=== PATIENT | female | born 1980 | race Caucasian/White ===

== ENCOUNTER 2017-06-07 13:34 | Observation (INO) | payer OTHER ==
[~2017-06-07 13:34] MED LIST: ISOVUE-370 76%-LOCM 1 ML ONE
[2017-06-07] MEDS ORDERED: Metoclopramide HCl 10 MG/2 ML VIAL ONE (14:08)
[2017-06-07 14:33] LABS: #Lymphocytes 0.5 thou/uL (1.20-3.40); #Monocytes 0.4 thou/uL (0.11-0.59); #Neutrophils 1.7 thou/uL (1.40-6.50); %Eosinophils 1.6 % (0.0-10.0); %Lymphocytes 18.6 % (21.0-51.0); %Monocytes 14.9 % (0.0-10.0); Hematocrit 35.5 % (36.0-47.0); Mean Platelet Volume 8.2 fL (7.4-10.4); Red Blood Cell (RBC) Count 3.92 mill/uL (4.20-5.40); White Blood Cell (WBC) Count 2.7 thou/uL (4.8-10.8)
[2017-06-07 14:54] LABS: ALT (SGPT) 7 U/L (8-55); AST (SGOT) 16 U/L (5-34); Alkaline Phosphatase 45 U/L (40-150); Anion Gap 9 mmol/L (10-20); BUN (Urea Nitrogen) 12 mg/dL (7.0-18.7); Bilirubin, Total 0.9 mg/dL (0.2-1.2); CK (CPK) 43 U/L (29-168); Calc. Creatinine Clearance 0 mL/min (70-130); Calcium 8.4 mg/dL (7.8-10.44); Carbon Dioxide 24 mmol/L (22-29); Chloride 110 mmol/L (98-107); Estimated GFR-MDRD Greater than 90; Globulin 3.5 g/dL (2.4-3.5); Lipase 14 U/L (8-78); Protein, Total 6.9 g/dL (6.0-8.3)
--- NOTE | 2017-06-07 17:47 | CT ---
CT ABDOMEN AND PELVIS WITH CONTRAST: 06/07/17 COMPARISON: None. HISTORY: HIV positive with abdominal pain, nausea and vomiting. TECHNIQUE: Multiple contiguous axial images were obtained in a CT of the abdomen and pelvis without contrast. C oronal reformats were performed. FINDINGS: The liver, gallbladder, kidneys, adrenal glands, spleen, and pancreas are unremarkable. No free air, free fluid, or stranding changes are seen in the abdomen or pelvis. The reproductive organs are unremarkable. The large and small bowel show no acute abnormality. No ab dominal or pelvic lymphadenopathy are seen. The osseous structures, visualized inferior thorax and abdominal wall soft tissues are unremarkable. IMPRESSION: No evidence of acute intra-abdominal/pelvic abnormality. POS: [facility]
[2017-06-07 18:01] LABS: Bilirubin Moderate (Negative); Blood, Urine Large (Negative); Glucose, Urine (Dipstick) Negative (Negative); Ketone, Urine 15 mg/dL (Negative); Nitrite Negative (Negative); Protein, Urine (Dipstick) 30 mg/dL (Neg-Trace)
[2017-06-07 18:07] LABS: Bacteria/HPF None Seen HPF (None Seen); Hyaline Casts/LPF 0-3 HYALINE CAST LPF (0-3 Hyaline); RBC/HPF 0-3 HPF (0-3); WBC/HPF 0-3 HPF (0-3)
[2017-06-07] MEDS ORDERED: Sodium Chloride 0.9% 1,000 ML IV SCH (22:26)
--- NOTE | 2017-06-07 23:21 | RAD ---
TWO VIEWS OF THE CHEST: 06/07/17 COMPARISON: 11/23/11, 06/06/17. HISTORY: Esophagitis. Abdominal pain. FINDINGS: Two views of the chest show normal sized cardiomediastinal silhouette. Linear opacities are seen in the left upper lobe which may represent scarring. No acute consolidation is seen. No pleural effusio n is present. IMPRESSION: Left upper lobe scarring. POS: [facility]
[2017-06-07 23:32] VITALS: BMI 16.9
[2017-06-08] MEDS ORDERED: Ondansetron HCl/PF 4 MG/2 ML Vial IVP PRN (00:01)
[2017-06-08] MEDS ORDERED: Acetaminophen 325 MG TAB PO PRN (00:01)
[2017-06-08] MEDS ORDERED: Sodium Chloride 0.45% 1,000 ML IV SCH (00:15)
[2017-06-08] MEDS ORDERED: Sodium Chloride 0.9% 1,000 ML IV SCH (00:15)
--- NOTE | 2017-06-08 05:38 | HP-2 ---
CODE STATUS: FULL. PRIMARY CARE PHYSICIAN: Nicanor Stuart MD ATTENDING: Asia Doss M.D. RESIDENT: Chris Potts MD HISTORIAN: The patient. SPECIALIST: Dr. Casper. CHIEF COMPLAINT: Vomiting. HISTORY OF PRESENT ILLNESS: Morena Harris is a 36-year-old female with past medical history of HIV who presents with a 1 month history of nausea and vomiting. On average, she has had 3 to 4 episodes of nausea and vomiting per day. The vomitus is nonbilious and nonbloody. Most of the time it occu rs after eating; however, it occurs occasionally, occurs on empty stomach in which case she just vom its acidic vomitus. She still has an appetite, but she feels like she has lost weight over the last month after she eats she feels like the food gets stuck in her chest and that causes her chest disc omfort until she vomits. This occurs with both solids and liquids intermittently. She was diagnose d with HIV in 2004, sees Dr. Casper and has been on Genvoya for the last 2 to 3 years. She has an ap pointment with him on Sunday. In the ER, she received IV Zofran 4 mg. PAST MEDICAL HISTORY: HIV. PAST SURGICAL HISTORY: and bilateral tubal ligation. ALLERGIES: No known drug allergies. MEDICATIONS: Genvoya [phone] mg p.o. daily. FAMILY HISTORY: Father had COPD. SOCIAL HISTORY: One-half to 1 pack per day smoker, although she has not smoked much in the last sun and minimal alcohol and no drug use. She has four children. REVIEW OF SYSTEMS: General: Positive for weight change. Denies fevers, chills, night sweats, and fatigue. Eyes: Denies vision changes or eye pain. ENT: Denies nasal congestion, rhinorrhea, sore throat. Respiratory: Denies cough, congestion, shortness of breath, exercise intolerance. Cardio vascular: Positive for chest pain/discomfort. Denies palpitations, edema, PND, orthopnea. Gastroi ntestinal: Positive for nausea, vomiting. Denies diarrhea, constipation, abdominal pain, GI bleedi ng. Genitourinary: Denies incontinence, dysuria, polyuria, and discharge. Skin: Denies rashes an d lesions. Musculoskeletal: Denies pain, tenderness, stiffness, swelling or arthritis. Neurologic : Denies weakness, numbness, syncope, seizures. Psychiatric: Denies anxiety and depression. PHYSICAL EXAMINATION: VITAL SIGNS: Blood pressure 124/74, pulse 75, respiratory rate 16, T-max 98.4, pulse ox 98% on room air. Current weight 47.6 kilograms. GENERAL: The patient is alert and oriented x4, in no acute distress, thin and appropriately interac tive. HEENT: Pupils equal, round, react to light and accommodation. Extraocular muscles intact. Conjunc tivae within normal limits. Tympanic membranes pearly gonzalez without bulging or erythema. Nasal muco sa and oropharynx within normal limits. No obvious lesions seen in the oropharynx. NECK: Supple, without lymphadenopathy or thyromegaly. CARDIOVASCULAR: Regular rate and rhythm. No murmurs or gallops. Pulses equal bilaterally. RESPIRATORY: Normal effort, no retractions. Lungs clear to auscultation bilaterally. SKIN: Warm and dry without cyanosis or lesions. ABDOMEN: Soft, nontender. Bowel sounds x4. No masses or distention. EXTREMITIES: No clubbing, cyanosis or edema. MUSCULOSKELETAL: Structure and tone within normal limit. Full range of motion. NEUROLOGIC: No deficits. Sensation within normal limits. PSYCHIATRIC: Appropriate. LABORATORY DATA: White blood cell count 2.7, hemoglobin 11.7, hematocrit 35.5, platelets 125. Sodi um 140, potassium 3.4, chloride 110, bicarbonate 24, BUN 12, creatinine 0.60, glucose 88, calcium 8. 4, total protein 6.9, albumin 3.4, total bilirubin 0.9, AST 16, ALT 7, alkaline phosphatase 45. Pre gnancy test was negative. CK 43, lipase 14. UA positive for large blood, 30 protein, 15 ketones, n egative otherwise. UA also had presence of squamous epithelium. IMAGING: CT of the abdomen, no evidence of acute intra-abdominal or pelvic abnormalities. ASSESSMENT AND PLAN: Morena Harris is a 36-year-old female with past medical history of HIV who pre sents with 1 month history of nausea and vomiting. 1. Esophagitis with history of HIV. There is concern for CMV, HSV or Love esophagitis. HIV fernanda ated and managed on an outpatient basis. Dr. aCsper has been consulted. Consult GI in the morning, p.r.n. Zofran for nausea, n.p.o. after midnight and a.m. CBC and BMP. Continue home HIV medications . IV fluids half normal saline at 90 mL an hour. 2. Human immunodeficiency virus. Continue home human immunodeficiency virus medications. White bl ood cell count is 2.7. 3. Nausea and vomiting. Continue p.r.n. IV Zofran. Continue to monitor vitals and then half violeta l saline at 90. 4. Code status: FULL. 5. Activity: Ad adan. 6. Diet: N.p.o. after midnight. DISPOSITION AND LENGTH OF HOSPITAL STAY: One day. Symptomatic medications will be provided. History and physical exam as well as management discussed with Dr. Asia Doss.
[2017-06-08 06:27] LABS: #Lymphocytes 0.5 thou/uL (1.20-3.40); #Monocytes 0.4 thou/uL (0.11-0.59); #Neutrophils 1.5 thou/uL (1.40-6.50); %Eosinophils 1.6 % (0.0-10.0); %Lymphocytes 20.8 % (21.0-51.0); %Monocytes 14.6 % (0.0-10.0); Mean Platelet Volume 8.2 fL (7.4-10.4); Red Blood Cell (RBC) Count 4.07 mill/uL (4.20-5.40); White Blood Cell (WBC) Count 2.4 thou/uL (4.8-10.8)
[2017-06-08 06:47] LABS: Anion Gap 11 mmol/L (10-20); BUN (Urea Nitrogen) 10 mg/dL (7.0-18.7); Calc. Creatinine Clearance 102 mL/min (70-130); Calcium 8.3 mg/dL (7.8-10.44); Carbon Dioxide 21 mmol/L (22-29); Chloride 110 mmol/L (98-107); Estimated GFR-MDRD Greater than 90
--- NOTE | 2017-06-08 08:31 | PDOC.FM ---
- Subjective Subjective: Pt reports feeling a little bit better after getting some zofran. Pt ate some pizza earlier in the night and did not report any episodes of vomiting over night. Still reports having the GERD like pain. Denies any chest pain and sob. Does report having diarrhea but it is due to drinking half a bottle of laxative earlier the other day due to constipation. Denies any other problems over night - Objective MAR Reviewed: Yes Vital Signs & Weight: Vital Signs (12 hours) Temp Pulse Resp BP Pulse Ox 06/08/17 07:15 98.3 F 76 16 108/67 98 06/08/17 04:00 98.6 F 63 18 121/70 98 06/08/17 01:26 97 06/08/17 00:45 98.3 F 81 18 109/65 97 06/07/17 23:36 98.2 F 75 18 06/07/17 23:31 98.2 F 75 18 123/60 97 Weight Weight 47.6 kg Result Diagrams: 06/08/17 06:01 06/08/17 06:01 Radiology Reviewed by me: Yes Radiology: CXR 06/07: TIM scarring CT Abdo/Pelvis 06/07: No evidence of acute intraabdominal/pelvic abnormalities. <Julius George - Last Filed: 06/08/17 08:29> - Objective Vital Signs & Weight: Vital Signs (12 hours) Temp Pulse Resp BP Pulse Ox 06/08/17 08:00 98.3 F 76 16 06/08/17 07:15 98.3 F 76 16 108/67 98 06/08/17 04:00 98.6 F 63 18 121/70 98 06/08/17 01:26 97 06/08/17 00:45 98.3 F 81 18 109/65 97 06/07/17 23:36 98.2 F 75 18 06/07/17 23:31 98.2 F 75 18 123/60 97 Weight Weight 47.6 kg Result Diagrams: 06/08/17 06:01 06/08/17 06:01 <Blas Luke - Last Filed: 06/08/17 10:27> Phys Exam - Physical Examination HEENT: PERRLA, moist MMs, oral pharynx no lesions Neck: no nodes, no JVD, supple, full ROM Respiratory: no wheezing, no rales, no rhonchi, clear to auscultation bilateral Cardiovascular: no significant murmur, no rub Gastrointestinal: soft, non-tender, no distention, positive bowel sounds Musculoskeletal: no edema, pulses present Neurological: non-focal, normal sensation Psychiatric: normal affect, A&O x 3 Skin: no rash <Julius George - Last Filed: 06/08/17 08:29> Dx/Plan (1) HIV (human immunodeficiency virus infection) Status: Acute (2) Esophagitis Code(s): K20.9 - ESOPHAGITIS, UNSPECIFIED Status: Acute (3) Abdominal pain with vomiting Code(s): R10.9 - UNSPECIFIED ABDOMINAL PAIN; R11.10 - VOMITING, UNSPECIFIED Status: Acute - Plan Plan: Esophagitis w/ hx of HIV -Concern for CMV, HSV or Love -GI-Dr. Batista consulted. will await recommendations -NPO -PRN zofran HIV -ID-Dr. Casper consulted. appreciate recs -continue home medication, Genvoya -WBC 2.7-->2.4. CD4 count reported low from outside check. Vomitting -K low, will replace IVPB due to being NPO. -1/2 normal saline @ 90 mls/hr. <Julius George - Last Filed: 06/08/17 08:29> Attending Addendum - Attending Addendum I personally evaluated the patient and discussed the management with Dr. George. I agree with the History, Examination, Assessment and Plan documented above with any addition or exceptions noted below. Awaiting EGD and Dr. Casper recommendations. Patient open to counselling outpatient with Dr. Baird. We will refer her outpatient to psychology. <Blas Luke - Last Filed: 06/08/17 10:27>
[2017-06-08] MEDS ORDERED: Potassium Chloride 20 MEQ/100 ML PREMIX BAG IVPB SCH (08:45)
[2017-06-08] MEDS ORDERED: Famotidine 20 MG TAB PO SCH (09:00)
[2017-06-08] MEDS ORDERED: [UNRECOGNIZED DRUG - OTHER] PO SCH (09:00)
[2017-06-08 09:58] LABS: Amphetamine Not Detected (NotDetected); Methadone Not Detected (NotDetected); Methamphetamine Not Detected (NotDetected)
--- NOTE | 2017-06-08 15:25 | CON ---
DATE OF CONSULTATION: 06/08/2017 HISTORY OF PRESENT ILLNESS: A 36-year-old with longstanding seropositive HIV status and progressive immunosuppression associated with various difficulties in the actual intake of antiretroviral medic imer. Last time I saw her in the office is about a year ago and at that time, patient had been belén ng in [place] then moved back to a small town in [place] with her . Her viral load then wa s 55,000 and CD4 of 50, I switch her to Genvoya, Bactrim, azithromycin, Diflucan and she did not gonzalo w up for revisit reportedly because of transportation issues. She had a May lab appointment, which she kept and this time the CD4 cell count has gone further down to 36 and viral load was highe r to at 213,000. Patient reportedly developed odynophagia and dysphagia for the past month prior to admission and that was making her even harder her adherence to the medication. Eventually, she gonzalo wed up in the emergency room, I was released a few days ago and yesterday the ER PA contacted me and I directed him to go ahead and admit her. She is currently having difficulty in swallowing, no hea daches, no visual symptoms. She has lost quite a bit of weight, some cough. No dyspnea. No abdomi nal pain or diarrhea. No genitourinary symptoms. No joint symptoms. No neurological symptoms. PAST MEDICAL HISTORY: Includes HIV seropositive status, prurigo nodularis, wasting syndrome and she has had difficulty with adherence to her antiretroviral therapy for various reasons and has a histo ry of drug use in the past, but apparently she is on in remission from that. PAST SURGICAL HISTORY: , tubal ligation. ALLERGIES: None. MEDICATIONS: Supposed to be on Genvoya, which she was trying to take. FAMILY HISTORY: COPD. SOCIAL HISTORY: Current smoker. PHYSICAL EXAMINATION: VITAL SIGNS: T-max 98.6, blood pressure 118/74, pulse 68, respirations 16, O2 sat 97%. GENERAL: Appears in some distress, she is oriented, pleasant. No skin lesions, peripheral IV acces s. No Gross catheter. No lymphadenopathy. HEENT: Ocular movements are conjugate. Sclerae white. Oral cavity with no evidence of thrush. Nu merous teeth in place with some periodontitis and gum disease. NECK: Supple, no jugular vein distention, or carotid bruits, no thyromegaly. LUNGS: With symmetric clear breath sounds. HEART: S1, S2, regular rate. No S3 or S4. ABDOMEN: Soft, not distended or tender. No ascites. No bladder distention. Scaphoid abdomen. EXTREMITIES: No joint inflammatory activity. Moves all extremities equally. LABORATORY AND X-RAY FINDINGS: White cell count 2.7, hemoglobin 11, MCV 90, platelets 125,000, 64% neutrophils. Sodium 139, creatinine 0.57, chloride 110, AST 16. Urinalysis with negative wbc, prot ein 30. Toxicology with cannabinoids, otherwise negative. Reports included abdomen and pelvis CT, which is essentially normal. She also had a chest x-ray, which showed left upper lobe scarring. ASSESSMENT: 1. Longstanding human immunodeficiency virus infection with poor adherence to antiretroviral therap y and progressive immunosuppression. 2. Likely esophagitis, either secondary to herpes simplex, CMV or idiopathic causes or Love. DISCUSSION: Patient will need an EGD to identify the etiology and then off her specific treatment. Meantime, continue Diflucan IV and antacids and submit cryptococcus antigen, CMV, DNA, PCR, and AFB cultures in blood, Bactrim prophylaxis for PCP by suspension of Kaletra and Epivir and etravirine f or now. In the outpatient setting, once the swallowing problem is resolved then we will consider tr ansition to a regimen with Triumeq, which will allow fragmentation of the tablet to facilitate swall owing.
[2017-06-08 16:09] VITALS: BP 100/76; TEMP 97.8
[2017-06-08] MEDS ORDERED: DEXTROSE 5% IVPB SCH ×2 (21:00)
[2017-06-08] MEDS ORDERED: TRIMETHOPRIM IVPB SCH ×2 (21:00)
[2017-06-08] MEDS ORDERED: SULFAMETHOXAZOLE IVPB SCH ×2 (21:00)
[2017-06-08] MEDS ORDERED: WATER IVPB SCH ×2 (21:00)
[2017-06-08] MEDS ORDERED: Lopinavir/Ritonavir 80 MG/20 MG per ML Oral Solution PO SCH (21:00)
[2017-06-09] MEDS ORDERED: Fluconazole In NaCl,Iso-Osm 200 MG in Premix Bag 1 BAG IVPB SCH ×2 (09:00)
--- NOTE | 2017-06-10 16:38 | DIS-2 ---
DATE OF ADMISSION: 06/07/2017 DATE OF DISCHARGE: 06/08/2017 Patient left AMA. ADMITTING ATTENDING: Dr. Asia Doss. DISCHARGE ATTENDING: Dr. Blas Luke. RESIDENT: Julius George M.D., PGY1 CONSULTATIONS: ID, Dr. Dario Casper; and GI, Dr. Rui Batista. It was noted that patient did not stay around as she left AMA before Dr. Rui Batista was able to a ssess her. DIAGNOSES: 1. Human immunodeficiency virus. 2. Esophagitis. 3. Abdominal pain with vomiting. 4. Anxiety. 5. History of bipolar disease which she was not be treated for. PROCEDURE: The patient was supposed to have EGD, but did not stay around for EGD. DISCHARGE MEDICATIONS: 1. Tylenol. 2. Etravirine 200 mg p.o. b.i.d. 3. Famotidine 20 mg p.o. b.i.d. 4. Fluconazole 200 mg IV. 5. Lopinavir/ritonavir 400 mg p.o. b.i.d. 6. Potassium 20 mEq. 7. Bactrim 190 mg IV. I am not sure if patient stuck around to receive these medications. DISCONTINUED MEDICATIONS: Genvoya. HISTORY OF PRESENT ILLNESS AND BRIEF HOSPITAL COURSE: Ms. Morena Harris is a 36-year-old female wit h past medical of HIV, who presented with 1-month history of nausea and vomiting. On average, she h as 3-4 episodes of nausea and vomiting per day, states she has a pain in her abdomen, reports it is GERD, usually occurs after eating, reported as food feels like was stuck. Diagnosed with HIV in [address] Casper and has been on Genvoya for the last 2-3 years. It is noted that she has not b een in the past, has not been very compliant with medication, and per history, it sounded like her l ast CD4 count checked might have been 34. At this time, there was concern for esophagitis with HIV- type picture with possible Love, CMV, possible PCP. At this time, we consulted Dr. Casper and smooth jimenez to consult GI. She had a CT abdomen and pelvis done, which showed no evidence of acute intra-a bdominal or pelvic abnormality. She also got a chest x-ray, which showed left upper lobe scarring. During this stay, she was kept n.p.o., as she was awaiting consult by Dr. Rui Batista, GI, for EG D. She was seen by Dr. Casper and some of her medications were switched. She was to be switched to fluconazole and then given Bactrim p.r.n. It was noted that the patient continued to get agitated. She is NPO and had not seen a GI doctor. She was getting frustrated. She did not like what Dr. Deshpande told her. She has had frustrations with Dr. Casper in the past. At this time, I went up and michelle ked to her and told her that she could sip on some water and keep her mouth moist with some breath p ads. Then overnight, she was seen by Dr. Potts, who said the patient got even more frustrated. Dr. Batista had not seen her yet. Dr. Potts put her on clear liquids until Dr. Batista would be able to se e her. At this time, the patient left AMA, stormed off, said she was going to [facility], was tired of this waiting around, did not care to wait around any longer and left AMA. DISPOSITION: The patient is guarded, because the patient left AMA. Did not choose to continue care with us at this time. DISCHARGE INSTRUCTIONS: 1. Location: Unknown as she left AMA. 2. Activity: As tolerated. She was able to walk out AMA on her own. 3. Diet: This will be whatever she chooses, as she did not get assessed by GI. 4. Followup: No followup as she left AMA.
== END 2017-06-08 19:00 | disposition left against medical advice (07) ==
LOC: ERS 13:34 → T4-A 22:15 → INTOOBSV 22:15
PROVIDERS: ADMIT Family Medicine; ATTEND Family Medicine
DX: B20 Human immunodeficiency virus [HIV] disease (principal); K20.9 Esophagitis, unspecified; R10.9 Unspecified abdominal pain; F41.9 Anxiety disorder, unspecified; F31.9 Bipolar disorder, unspecified; R11.2 Nausea with vomiting, unspecified; R64 Cachexia; J98.4 Other disorders of lung; F17.210 Nicotine dependence, cigarettes, uncomplicated; Z68.1 Body mass index [BMI] 19.9 or less, adult; Z53.21 Procedure and treatment not carried out due to patient leaving prior to being seen by health care provider; Z91.14 Patient's other noncompliance with medication regimen; Z79.899 Other long term (current) drug therapy; Z98.51 Tubal ligation status; Z98.890 Other specified postprocedural states; Z83.6 Family history of other diseases of the respiratory system
CPT/HCPCS: 36415; 71020; 74177; 80048; 80053; 80306; 81003; 81015; 81025; 82550; 83690; 84703; 85025; 87497; 87899; 96361; 96374; A4216; C9399; G0378; J2765; J3480; J3490; J7050; J7070

== ENCOUNTER 2018-01-25 14:31 | Outpatient (CLI) | payer OTHER | END 2018-01-25 14:32 | disposition home or self-care (01) | LOC: BICULT 14:31 | PROVIDERS: ATTEND Family Medicine | DX: N93.9 Abnormal uterine and vaginal bleeding, unspecified (principal); R93.8 Abnormal findings on diagnostic imaging of other specified body structures | CPT/HCPCS: 76856 ==

== ENCOUNTER 2018-02-21 11:19 | Emergency (ER) | payer MEDICAID, OTHER ==
--- NOTE | 2018-02-21 12:28 | RAD ---
CHEST 1 VIEW: HISTORY: Chest and abdominal pain. COMPARISON: Chest radiograph 06/07/17. FINDINGS: There is callus formation of the left posterior rib fracture. There is scarring in the left lung ape x extending to the pleura. This appears to be similar to the comparison examination. Also, some per ipheral right upper lobe peripheral scarring. Mild lung hyperinflation. IMPRESSION: Bilateral upper lobe scarring for the sequelae of prior atypical infectious process. POS: [facility]
[2018-02-21 12:29] LABS: Hemoglobin 10.9 g/dL (12.0-16.0); Mean Corpuscular HGB CONC 33.9 g/dL (32.0-36.0); Mean Corpuscular Hemoglobin 29.7 pg (27.0-31.0); Mean Corpuscular Volume 87.6 fl (81.0-99.0); Mean Platelet Volume 8.5 fL (7.4-10.4); Platelet Count 166 thou/uL (130-400); RBC Distribution Width 11.5 % (11.5-14.5); Red Blood Cell (RBC) Count 3.68 mill/uL (4.20-5.40); White Blood Cell (WBC) Count 5.1 thou/uL (4.8-10.8)
[2018-02-21 12:37] LABS: BHCG - Serum Negative (NEGATIVE); Pregs Control Background? CLEAR/WHITE (CLR/WHITE); Pregs Control Bar Appear? YES (CONTROL BAR)
[2018-02-21] MEDS ORDERED: Mag-Al 1200 mg/1200 mg/30 ML UDCUP ONE (12:38)
[2018-02-21] MEDS ORDERED: Lidocaine Viscous Sol 2% 15 ml UD Cup ONE (12:38)
[2018-02-21] MEDS ORDERED: Famotidine 20 MG TAB ONE (12:38)
[2018-02-21 12:46] LABS: ALT (SGPT) 8 U/L (8-55); AST (SGOT) 14 U/L (5-34); Albumin 3.5 g/dL (3.5-5.0); Alkaline Phosphatase 49 U/L (40-150); Anion Gap 11 mmol/L (10-20); BUN (Urea Nitrogen) 10 mg/dL (7.0-18.7); Bilirubin, Total 1.1 mg/dL (0.2-1.2); Calc. Creatinine Clearance 0 mL/min (70-130); Calcium 8.6 mg/dL (7.8-10.44); Carbon Dioxide 25 mmol/L (22-29); Chloride 106 mmol/L (98-107); Estimated GFR-MDRD Greater than 90; Globulin 4.2 g/dL (2.4-3.5); Glucose 84 mg/dL (70-105); Lipase 29 U/L (8-78); Potassium 3.1 mmol/L (3.5-5.1); Protein, Total 7.7 g/dL (6.0-8.3); Sodium 139 mmol/L (136-145)
[2018-02-21 12:48] LABS: CKMB 0.7 ng/mL (0-6.6); Troponin I Less than 0.010 ng/mL (< 0.028)
[2018-02-21 13:06] LABS: Lymphocytes 4 % (21-51); MDiff Complete? YES; Monocytes 10 % (0-10); Neutrophil 84 % (42-75); PLT Morphology Comment Appears Adequate; Polychromasia SLIGHT = 2-3 cells (100X) (0-2/hpf); Reactive Lymphocytes 2 % (0-10)
[2018-02-21] MEDS ORDERED: Potassium Chloride 20 MEQ TAB ONE (14:15)
== END 2018-02-21 16:34 | disposition home or self-care (01) ==
LOC: ERS 11:19
DX: K29.70 Gastritis, unspecified, without bleeding (principal); Z71.6 Tobacco abuse counseling; B20 Human immunodeficiency virus [HIV] disease; F41.9 Anxiety disorder, unspecified; F31.9 Bipolar disorder, unspecified; F17.210 Nicotine dependence, cigarettes, uncomplicated; Z79.899 Other long term (current) drug therapy
CPT/HCPCS: 36415; 71045; 80053; 82553; 83690; 84484; 84703; 85025; 93005; 96360; 99406

== ENCOUNTER 2018-03-13 08:12 | Day surgery (SDC) | payer OTHER ==
[2018-03-13] MEDS ORDERED: Lidocaine 1% PF 5 ML VIAL ONE (13:51)
[2018-03-13] MEDS ORDERED: PROPOFOL 200 MG/20 ML VIAL ONE (13:51)
--- NOTE | 2018-03-13 21:21 | OP ---
PREOPERATIVE DIAGNOSIS: Dysphagia. PROCEDURE: After informed consent was obtained, the patient was placed in the left lateral decubitus position. Anesthesia was administered per the Anesthesia Department. Forward-viewing endoscope was inserted in esophagus under direct visualization with ease and past the the second portion of the du odenum with ease. Second portion of the duodenum was normal. The duodenal bulb was normal. The pyl orus, antrum, body, fundus, and cardia were normal. The esophagus displayed circumferential and ramin re candidiasis. There were some areas of scattered nodularity and erosion and these areas were biops ied. ASSESSMENT: 1. Severe Love esophagitis with some scattered areas of nodularity and erosion - status post biop sy. 2. Otherwise normal esophagogastroduodenoscopy. RECOMMENDATIONS: Begin fluconazole 400 mg daily for 21 days.
== END 2018-03-13 17:30 | disposition home or self-care (01) ==
LOC: SDC 08:12
PROVIDERS: ATTEND Internal Medicine Gastroenterology
PROC: 0DB58ZX Excision of Esophagus, Via Natural or Artificial Opening Endoscopic, Diagnostic (ICD-10-PCS; principal; 2018-03-13)
DX: B37.81 Candidal esophagitis (principal); Z79.899 Other long term (current) drug therapy
CPT/HCPCS: 88305; 88312; 88313; J2001; J2704

== ENCOUNTER 2018-08-13 12:28 | Emergency (ER) | payer OTHER ==
[2018-08-13] MEDS ORDERED: Metoclopramide HCl 10 MG/2 ML VIAL ONE (13:18)
[2018-08-13 13:23] LABS: #Lymphocytes 0.3 thou/uL (1.20-3.40); #Monocytes 0.4 thou/uL (0.11-0.59); #Neutrophils 2.8 thou/uL (1.40-6.50); %Eosinophils 0.4 % (0.0-10.0); %Lymphocytes 8.3 % (21.0-51.0); %Monocytes 10.7 % (0.0-10.0); %Neutrophils 80.6 % (42.0-75.0); Hemoglobin 12.8 g/dL (12.0-16.0); Mean Corpuscular HGB CONC 34.1 g/dL (32.0-36.0); Mean Corpuscular Hemoglobin 30.4 pg (27.0-31.0); Mean Corpuscular Volume 89.2 fL (78.0-98.0); Platelet Count 129 thou/uL (130-400); RBC Distribution Width 12.4 % (11.5-14.5); Red Blood Cell (RBC) Count 4.21 mill/uL (4.20-5.40); White Blood Cell (WBC) Count 3.4 thou/uL (4.8-10.8)
[2018-08-13 13:33] LABS: Acetaminophen Less than 6.0 mcg/mL (10.0-30.0); Alcohol Less than 10 mg/dL (Less than 10); Salicylate Less than 8.0 mg/dL (15.0-30.0)
[2018-08-13 13:33] LABS: ALT (SGPT) 33 U/L (8-55); AST (SGOT) 34 U/L (5-34); Albumin 3.7 g/dL (3.5-5.0); Alkaline Phosphatase 54 U/L (40-150); Anion Gap 11 mmol/L (10-20); BUN (Urea Nitrogen) 8 mg/dL (7.0-18.7); Bilirubin, Total 1.1 mg/dL (0.2-1.2); Calc. Creatinine Clearance 0 mL/min (70-130); Calcium 9.1 mg/dL (7.8-10.44); Carbon Dioxide 24 mmol/L (22-29); Chloride 105 mmol/L (98-107); Estimated GFR-MDRD 90; Glucose 94 mg/dL (70-105); Potassium 3.4 mmol/L (3.5-5.1); Protein, Total 7.7 g/dL (6.0-8.3); Sodium 137 mmol/L (136-145)
--- NOTE | 2018-08-13 13:43 | RAD ---
CHEST ONE VIEW: Comparison: 02-21-18 History: Cough. FINDINGS: Normal cardiac silhouette. The pulmonary vessels and hilum are normal. Costophrenic angles are clear. Hyperinflation, without consolidation or mass. No pneumothorax or acute osseous abnormalities. Old p osterior left sixth rib fracture is noted. IMPRESSION: No acute cardiopulmonary process. POS: [facility]
[2018-08-13 13:47] LABS: Bilirubin Small (Negative); Blood, Urine Negative (Negative); Clarity CLEAR (Clear); Glucose, Urine (Dipstick) Negative (Negative); Leukocyte Negative (Negative); Nitrite Positive (Negative); Protein, Urine (Dipstick) 30 mg/dL (Neg-Trace); Specific Gravity, Urine 1.019 (1.002-1.036); pH, Urine 6.5 (5.0-9.0)
[2018-08-13 13:48] LABS: Pregnancy Test - Urine (BHCG) Negative (Negative); Pregu Control Background? CLEAR/WHITE (CLR/WHITE); Pregu Control Bar Appear? YES (CONTROL BAR); Specific Gravity 1.019 (1.002-1.036)
[2018-08-13 13:49] LABS: Bacteria/HPF Rare-Few HPF (None Seen); Pathc Cast-AUWi Flag 1.16 (0-2.49); RBC/HPF None Seen HPF (0-3); Squamous Epithelial 0-3 HPF (0-3); WBC/HPF 21-50 HPF (0-3); Yeast-AUWi Flag 22.6 (0-25.0)
[2018-08-13 13:51] LABS: Hyaline Casts/LPF 0-3 HYALINE CAST LPF (0-3 Hyaline)
[2018-08-13 14:01] LABS: Amphetamine Not Detected (NotDetected); Barbiturates Screen Not Detected (NotDetected); Benzodiazepine Screen Not Detected (NotDetected); Cocaine Metabolite Screen Not Detected (NotDetected); Medtox Control Line Valid? VALID (VALID); Medtox Reader # READER 1; Methadone Not Detected (NotDetected); Methamphetamine Not Detected (NotDetected); Opiate Screen Not Detected (NotDetected); Oxycodone Screen Not Detected (NotDetected); Phencyclidine (PCP) Not Detected (NotDetected); THC/Cannabinoid Screen Detected (NotDetected); Tricyclic Screen Not Detected (NotDetected)
--- NOTE | 2018-08-13 14:53 | CT ---
CT BRAIN: Date: 08-13-18 Provided Clinical History: Multiple recent falls with loss of consciousness. FINDINGS: No comparison. The ventricular system appears normal in size and morphology. There is no evidence for intracranial h emorrhage or mass effect. The extracranial soft tissues and osseous structures demonstrate an unremarkable CT appearance. IMPRESSION: No evidence for intracranial hemorrhage or mass effect. POS: [facility]
--- NOTE | 2018-08-13 14:59 | CT ---
CT OF THE CERVICAL SPINE DATE: 08-13-18 Provided Clinical History: Multiple recent falls with loss of consciousness. FINDINGS: There is no evidence for fracture or traumatic subluxation. There is no prevertebral soft tissue swel ling evident. There is an age indeterminate central disc herniation at C4-5 with potential for efface ment of the ventral aspect of the spinal cord. There is a cystic mass involving the left thyroid lobe measuring at least 2.8 cm. Paraseptal emphysematous changes are seen at the left lung apex as well a s biapical pleural parenchymal scarring. IMPRESSION: 1. No evidence for fracture or traumatic subluxation. 2. Central disc herniation at C4-5. The chronicity of this process is uncertain. 3. At least 2.8 cm cystic mass involving the left thyroid lobe for which nonemergent follow up ultras ound is recommended. POS: [facility]
[2018-08-13] MEDS ORDERED: cefTRIAXone\\ROCEPHIN 2 GM VIAL ONE (15:29)
[2018-08-13] MEDS ORDERED: Sodium Chloride 0.9% 100 ML ONE (15:29)
--- NOTE | 2018-08-17 17:52 | EKG ---
Test Reason : Blood Pressure : / mmHG Vent. Rate : 094 BPM Atrial Rate : 094 BPM P-R Int : 170 ms QRS Dur : 094 ms QT Int : 384 ms P-R-T Axes : 068 098 025 degrees QTc Int : 480 ms Normal sinus rhythm Rightward axis Abnormal ECG Confirmed by SHERRI QUINONES ([id number]), manuscript editor JACKIE GAMEZ ([id number]) on 08/17/2018 5:52:15 PM Referred By: do quinones Confirmed By:SHERRI QUINONES
== END 2018-08-13 16:01 | disposition home or self-care (01) ==
LOC: ERS 12:28
DX: N39.0 Urinary tract infection, site not specified (principal); F31.9 Bipolar disorder, unspecified; B20 Human immunodeficiency virus [HIV] disease; F17.210 Nicotine dependence, cigarettes, uncomplicated; Z79.899 Other long term (current) drug therapy; Z71.6 Tobacco abuse counseling
CPT/HCPCS: 36415; 51701; 70450; 71045; 72125; 80053; 80306; 80307; 81003; 81015; 81025; 85025; 93005; 96365; 96367; 99406; A4353; J0696; J2765; J7050

== ENCOUNTER 2018-11-11 15:01 | Emergency (ER) | payer OTHER ==
--- NOTE | 2018-11-11 17:06 | RAD ---
CHEST 2 VIEWS: INDICATION: Chronic acid reflux. COMPARISON: Prior exam dated 08/13/2018 and 06/07/2017. FINDINGS: There is stable scarring within the left upper lobe. There is pleural parenchymal scarring involving both lung apices. Heart size is normal. No consolidation, pleural effusion, or pneumothorax is sandra dent. IMPRESSION: No acute cardiopulmonary abnormality. Stable chronic lung changes. POS: [facility]
[2018-11-11 17:07] LABS: #Lymphocytes 0.5 thou/uL (1.20-3.40); #Monocytes 0.4 thou/uL (0.11-0.59); #Neutrophils 2.4 thou/uL (1.40-6.50); %Basophils 0.1 % (0.0-1.0); %Eosinophils 1.2 % (0.0-10.0); %Lymphocytes 15.6 % (21.0-51.0); %Monocytes 11.6 % (0.0-10.0); %Neutrophils 71.5 % (42.0-75.0); Hemoglobin 14.3 g/dL (12.0-16.0); Mean Corpuscular HGB CONC 33.4 g/dL (32.0-36.0); Mean Corpuscular Hemoglobin 30.9 pg (27.0-31.0); Mean Corpuscular Volume 92.5 fL (78.0-98.0); Mean Platelet Volume 8.4 fL (7.4-10.4); Platelet Count 159 thou/uL (130-400); RBC Distribution Width 11.5 % (11.5-14.5); Red Blood Cell (RBC) Count 4.63 mill/uL (4.20-5.40); White Blood Cell (WBC) Count 3.3 thou/uL (4.8-10.8)
[2018-11-11 17:29] LABS: ALT (SGPT) 19 U/L (8-55); AST (SGOT) 27 U/L (5-34); Alkaline Phosphatase 75 U/L (40-150); Anion Gap 11 mmol/L (10-20); BUN (Urea Nitrogen) 10 mg/dL (7.0-18.7); Bilirubin, Total 0.5 mg/dL (0.2-1.2); Calc. Creatinine Clearance 0 mL/min (70-130); Carbon Dioxide 26 mmol/L (22-29); Chloride 105 mmol/L (98-107); Estimated GFR-MDRD Greater than 90; Globulin 4.4 g/dL (2.4-3.5); Glucose 99 mg/dL (70-105); Lipase 47 U/L (8-78); Potassium 3.7 mmol/L (3.5-5.1); Protein, Total 8.4 g/dL (6.0-8.3); Sodium 138 mmol/L (136-145)
[2018-11-11] MEDS ORDERED: HYDROcodone/Acetaminophen 10/325 mg Tablet ONE (17:50)
[2018-11-11] MEDS ORDERED: Lidocaine Viscous Sol 2% 15 ml UD Cup ONE (17:51)
[2018-11-11] MEDS ORDERED: Mag-Al 1200 mg/1200 mg/30 ML UDCUP ONE (17:51)
== END 2018-11-11 18:01 | disposition home or self-care (01) ==
LOC: ERS 15:01
DX: K21.0 Gastro-esophageal reflux disease with esophagitis (principal); B37.81 Candidal esophagitis; B20 Human immunodeficiency virus [HIV] disease; F31.9 Bipolar disorder, unspecified; F17.210 Nicotine dependence, cigarettes, uncomplicated; Z79.899 Other long term (current) drug therapy
CPT/HCPCS: 36415; 71046; 80053; 83690; 84484; 85025; 87338; 93005

== ENCOUNTER 2019-02-09 23:17 | Emergency (ER) | payer OTHER ==
[2019-02-10 00:06] LABS: Acetaminophen Less than 6.0 mcg/mL (10.0-30.0); Alcohol Less than 10 mg/dL (Less than 10); CK (CPK) 70 U/L (29-168); Salicylate Less than 8.0 mg/dL (15.0-30.0)
[2019-02-10 00:11] LABS: ALT (SGPT) 20 U/L (8-55); AST (SGOT) 23 U/L (5-34); Albumin 3.5 g/dL (3.5-5.0); Alkaline Phosphatase 58 U/L (40-150); Anion Gap 11 mmol/L (10-20); BUN (Urea Nitrogen) 19 mg/dL (7.0-18.7); Bilirubin, Total 0.4 mg/dL (0.2-1.2); Calc. Creatinine Clearance 0 mL/min (70-130); Calcium 8.9 mg/dL (7.8-10.44); Carbon Dioxide 26 mmol/L (22-29); Chloride 107 mmol/L (98-107); Estimated GFR-MDRD 82; Globulin 3.4 g/dL (2.4-3.5); Glucose 79 mg/dL (70-105); Potassium 3.8 mmol/L (3.5-5.1); Protein, Total 6.9 g/dL (6.0-8.3); Sodium 140 mmol/L (136-145)
[2019-02-10 00:13] LABS: Band 8 % (5-11); Hemoglobin 10.2 g/dL (12.0-16.0); Lymphocytes 13 % (21-51); MDiff Complete? YES; Mean Corpuscular HGB CONC 32.8 g/dL (32.0-36.0); Mean Corpuscular Hemoglobin 29.7 pg (27.0-31.0); Mean Corpuscular Volume 90.5 fL (78.0-98.0); Mean Platelet Volume 8.4 fL (7.4-10.4); Monocytes 6 % (0-10); Myelocyte 1 % (0-0); Neutrophil 72 % (42-75); Platelet Count 171 thou/uL (130-400); RBC Distribution Width 13.7 % (11.5-14.5); Red Blood Cell (RBC) Count 3.42 mill/uL (4.20-5.40); White Blood Cell (WBC) Count 3.4 thou/uL (4.8-10.8)
== END 2019-02-10 02:39 | disposition home or self-care (01) ==
LOC: ERS 23:17
DX: F41.9 Anxiety disorder, unspecified (principal); Z71.6 Tobacco abuse counseling; D64.9 Anemia, unspecified; B20 Human immunodeficiency virus [HIV] disease; G20 Parkinson's disease; F31.9 Bipolar disorder, unspecified; F17.210 Nicotine dependence, cigarettes, uncomplicated; Z79.899 Other long term (current) drug therapy
CPT/HCPCS: 36415; 80053; 80307; 82550; 84443; 85025; 93005; 99406

== ENCOUNTER 2019-02-20 15:22 | Emergency (ER) | payer OTHER ==
[2019-02-20 18:47] LABS: Hemoglobin 9.6 g/dL (12.0-16.0); Mean Corpuscular HGB CONC 33.4 g/dL (32.0-36.0); Mean Corpuscular Hemoglobin 30.7 pg (27.0-31.0); Mean Corpuscular Volume 91.8 fL (78.0-98.0); Mean Platelet Volume 8.2 fL (7.4-10.4); Platelet Count 189 thou/uL (130-400); RBC Distribution Width 15.5 % (11.5-14.5); Red Blood Cell (RBC) Count 3.13 mill/uL (4.20-5.40)
[2019-02-20 19:02] LABS: Acetaminophen Less than 6.0 mcg/mL (10.0-30.0); Alcohol Less than 10 mg/dL (Less than 10); Anion Gap 6 mmol/L (10-20); BUN (Urea Nitrogen) 20 mg/dL (7.0-18.7); Calc. Creatinine Clearance 0 mL/min (70-130); Calcium 8.8 mg/dL (7.8-10.44); Carbon Dioxide 31 mmol/L (22-29); Chloride 107 mmol/L (98-107); Estimated GFR-MDRD Greater than 90; Glucose 86 mg/dL (70-105); Potassium 3.9 mmol/L (3.5-5.1); Salicylate Less than 8.0 mg/dL (15.0-30.0); Sodium 140 mmol/L (136-145)
[2019-02-20 19:08] LABS: Anisocytosis SLIGHT = 6-15 cells (100X) (0-5/hpf); Band 14 % (5-11); Elliptocytes SLIGHT = 2-5 cells (100X) (0-1/hpf); Eosinophils 1 % (0-10); Lymphocytes 8 % (21-51); MDiff Complete? YES; Monocytes 11 % (0-10); Neutrophil 66 % (42-75); Platelet Morphology Comment Appears Adequate
[2019-02-20 21:51] LABS: Bilirubin Negative (Negative); Blood, Urine Negative (Negative); Clarity CLOUDY (Clear); Glucose, Urine (Dipstick) Negative (Negative); Leukocyte Negative (Negative); Nitrite Negative (Negative); Protein, Urine (Dipstick) Negative (Neg-Trace); Urobilinogen 0.2 mg/dL (0.2-1.0); pH, Urine 7.5 (5.0-9.0)
[2019-02-20 21:54] LABS: Pregnancy Test - Urine (BHCG) Negative (Negative); Pregu Control Background? CLEAR/WHITE (CLR/WHITE); Pregu Control Bar Appear? YES (CONTROL BAR)
[2019-02-20 22:00] LABS: Amphetamine Not Detected (NotDetected); Barbiturates Screen Not Detected (NotDetected); Benzodiazepine Screen Not Detected (NotDetected); Cocaine Metabolite Screen Not Detected (NotDetected); Medtox Control Line Valid? VALID (VALID); Medtox Reader # READER 1; Methadone Not Detected (NotDetected); Methamphetamine Not Detected (NotDetected); Opiate Screen Not Detected (NotDetected); Oxycodone Screen Not Detected (NotDetected); Phencyclidine (PCP) Not Detected (NotDetected); THC/Cannabinoid Screen Detected (NotDetected); Tricyclic Screen Not Detected (NotDetected)
== END 2019-02-21 01:17 ==
LOC: ERS 15:22
DX: F43.0 Acute stress reaction (principal); B20 Human immunodeficiency virus [HIV] disease; F31.9 Bipolar disorder, unspecified; F17.210 Nicotine dependence, cigarettes, uncomplicated
CPT/HCPCS: 36415; 80048; 80306; 80307; 81003; 81025; 84443; 85025; 99285

== ENCOUNTER 2019-02-25 04:17 | Emergency (ER) | payer OTHER ==
[2019-02-25 05:03] LABS: #Eosinphils 0.1 thou/uL (0.0-0.7); #Lymphocytes 0.3 thou/uL (1.20-3.40); #Monocytes 0.4 thou/uL (0.11-0.59); #Neutrophils 2.5 thou/uL (1.40-6.50); %Eosinophils 1.6 % (0.0-10.0); %Lymphocytes 7.9 % (21.0-51.0); %Monocytes 11.6 % (0.0-10.0); %Neutrophils 78.9 % (42.0-75.0); Hemoglobin 10.2 g/dL (12.0-16.0); Mean Corpuscular Hemoglobin 30.3 pg (27.0-31.0); Mean Corpuscular Volume 94.9 fL (78.0-98.0); Mean Platelet Volume 8.5 fL (7.4-10.4); Platelet Count 192 thou/uL (130-400); RBC Distribution Width 15.9 % (11.5-14.5); Red Blood Cell (RBC) Count 3.35 mill/uL (4.20-5.40); White Blood Cell (WBC) Count 3.2 thou/uL (4.8-10.8)
[2019-02-25 05:20] LABS: ALT (SGPT) 29 U/L (8-55); AST (SGOT) 34 U/L (5-34); Acetaminophen Less than 6.0 mcg/mL (10.0-30.0); Albumin 3.7 g/dL (3.5-5.0); Alcohol Less than 10 mg/dL (Less than 10); Alkaline Phosphatase 69 U/L (40-150); Anion Gap 11 mmol/L (10-20); BUN (Urea Nitrogen) 19 mg/dL (7.0-18.7); Bilirubin, Total 0.2 mg/dL (0.2-1.2); CK (CPK) 109 U/L (29-168); Calc. Creatinine Clearance 0 mL/min (70-130); Calcium 9.2 mg/dL (7.8-10.44); Carbon Dioxide 25 mmol/L (22-29); Chloride 106 mmol/L (98-107); Estimated GFR-MDRD Greater than 90; Globulin 3.8 g/dL (2.4-3.5); Glucose 81 mg/dL (70-105); Potassium 4.2 mmol/L (3.5-5.1); Protein, Total 7.5 g/dL (6.0-8.3); Salicylate Less than 8.0 mg/dL (15.0-30.0); Sodium 138 mmol/L (136-145)
[2019-02-25 08:12] LABS: Bilirubin Negative (Negative); Blood, Urine Negative (Negative); Clarity CLEAR (Clear); Glucose, Urine (Dipstick) Negative (Negative); Leukocyte Negative (Negative); Nitrite Negative (Negative); Protein, Urine (Dipstick) Negative (Neg-Trace); Specific Gravity, Urine 1.016 (1.002-1.036); Urobilinogen 0.2 mg/dL (0.2-1.0); pH, Urine 7.5 (5.0-9.0)
[2019-02-25 08:14] LABS: Pregnancy Test - Urine (BHCG) Negative (Negative); Pregu Control Background? CLEAR/WHITE (CLR/WHITE); Pregu Control Bar Appear? YES (CONTROL BAR); Specific Gravity 1.016 (1.002-1.036)
[2019-02-25 08:16] LABS: Cocaine Metabolite Screen Not Detected (NotDetected); Medtox Reader # READER 1; Methamphetamine Not Detected (NotDetected); Phencyclidine (PCP) Not Detected (NotDetected); THC/Cannabinoid Screen Not Detected (NotDetected)
[2019-02-25 08:17] LABS: Amphetamine Not Detected (NotDetected); Barbiturates Screen Not Detected (NotDetected); Benzodiazepine Screen Not Detected (NotDetected); Medtox Control Line Valid? VALID (VALID); Methadone Not Detected (NotDetected); Opiate Screen Not Detected (NotDetected); Oxycodone Screen Not Detected (NotDetected); Tricyclic Screen Not Detected (NotDetected)
[2019-02-25] MEDS ORDERED: risperiDONE 1 MG TAB ONE (11:32)
[2019-02-25] MEDS ORDERED: FLUoxetine HCl 20 MG CAP PO SCH (11:45)
--- NOTE | 2019-03-01 10:26 | EKG ---
Test Reason : Blood Pressure : / mmHG Vent. Rate : 094 BPM Atrial Rate : 094 BPM P-R Int : 176 ms QRS Dur : 094 ms QT Int : 374 ms P-R-T Axes : 058 092 064 degrees QTc Int : 467 ms Normal sinus rhythm Rightward axis Possible Anterior infarct , age undetermined Abnormal ECG No change from 02/09/19 Confirmed by SHERRI JORDAN ([id number]), editor index LELA THORNTON ([id number]) on 03/01/2019 10:26:26 AM Referred By: Confirmed By:SHERRI JORDAN
== END 2019-02-25 14:52 ==
LOC: ERS 04:17
DX: R45.851 Suicidal ideations (principal); F31.9 Bipolar disorder, unspecified; F17.210 Nicotine dependence, cigarettes, uncomplicated; G20 Parkinson's disease; D64.9 Anemia, unspecified; Z79.899 Other long term (current) drug therapy
CPT/HCPCS: 36415; 80053; 80306; 80307; 81003; 81025; 82550; 84443; 85025; 93005